=== PATIENT | female | born 1970 | race Caucasian/White ===

== ENCOUNTER 2016-10-21 07:11 | Emergency (ER) | payer BC ==
[2016-10-21] MEDS ORDERED: Ketorolac INJ* 30 MG/ML 1 ML VIAL IV PUSH ONE (07:28)
[2016-10-21] MEDS ORDERED: NS 0.9% 1000 ML* 1,000 ML IV ONE (07:28)
--- NOTE | 2016-10-21 08:21 | RAD ---
INDICATION: Left flank pain COMPARISON: ; CT pelvis November 15, 2015; CT abdomen and pelvis December 01, 2007 TECHNIQUE: Noncontrast axial source images were acquired from the level hemidiaphragms to the symphysis pubis as part of CT imaging for renal stone. Lung bases: The lung bases are clear. Liver: The liver is enlarged with findings of hepatic steatosis. Noncontrast imaging shows no evidence of a hepatic mass or ductal dilatation. Gallbladder: There are no calcified gallstones. There is no evidence of wall thickening or pericholecystic fluid.. Spleen: The spleen is normal in size. The noncontrast CT appearance is normal. Pancreas: Noncontrast imaging shows no pancreatic mass or ductal dilitation. Adrenal glands: No masses are identified. Kidneys/Bladder: There is no evidence of nephrolithiasis or CT evidence of hydronephrosis. Noncontrast imaging shows no evidence of a renal mass. The bladder is unremarkable.. There are 2 small consultations in the minor pelvis and left which were present on the earlier CT the pelvis which appear to represent vascular calcifications. Adenopathy: There is no evidence of intraperitoneal or retroperitoneal adenopathy. Evaluation is limited without oral contrast. Fluid collections: There are no free or localized fluid collections. Vessels: The aorta and iliac vessels are normal in caliber. There are no significant atherosclerotic changes. The IVC appears normal Pelvic organs: There is a 4 cm left adnexal cyst. The right adnexa is unremarkable. There is hysterectomy GI tract: Evaluation of the bowel is limited without oral contrast. The stomach, small bowel, and lower GI tract appear grossly normal. There are no obstructive findings. The appendix is visualized and appears normal. Soft tissues: No soft tissue abnormalities of the extraperitoneal abdomen or pelvis are identified. Osseous structures: There are no acute osseous findings. IMPRESSION: NO CT EVIDENCE OF UROLITHIASIS. 4 CM LEFT ADNEXAL CYST. SUGGEST FOLLOW-UP ULTRASONOGRAPHY
[2016-10-21 08:33] LABS: Hematocrit 42 % (35-47); Hemoglobin 13.9 g/dl (12.0-16.0); Mean Corpuscular HGB Conc 33 g/dl (31-36); Mean Corpuscular Hemoglobin 30 pg (27-31); Mean Corpuscular Volume 91 fL (80-97); Mean Platelet Volume 8 um3 (7.4-10.4); Red Blood Count 4.62 10^6/ul (4.0-5.4); Red Cell Distribution Width 14 % (10.5-15); White Blood Count 5.1 10^3/ul (3.5-10.8)
[2016-10-21 08:34] LABS: ALT 12 U/L (7-52); AST 16 U/L (13-39); Albumin 4.2 g/dL (3.2-5.2); Alkaline Phosphatase 49 U/L (34-104); Anion Gap 6 mmol/L (2-11); Blood Urea Nitrogen 15 mg/dL (6-24); C Reactive Protein < 1.00 mg/L (< 5.00); CO2 Carbon Dioxide 25 mmol/L (22-32); Calcium 9.1 mg/dL (8.6-10.3); Chloride 105 mmol/L (101-111); EGFR Non-African American 83.2 (>60); Globulin 3.1 g/dL (2-4); Glucose 91 mg/dL (70-100); Lipase 47 U/L (11.0-82.0); Potassium 3.9 mmol/L (3.5-5.0); Sodium 136 mmol/L (133-145); Total Protein 7.3 g/dL (6.4-8.9)
[2016-10-21 08:50] LABS: Urine Bacteria 1+ (Absent); Urine Bilirubin Negative (Negative); Urine Glucose Negative (Negative); Urine Nitrite Negative (Negative)
--- NOTE | 2016-10-21 09:30 | RAD ---
HISTORY: Adnexal mass,, status post hysterectomy COMPARISONS: CT dated October 21, 2016 TECHNIQUE: Multiple transverse and longitudinal ultrasound images were obtained of the pelvis using grayscale, color Doppler, and spectral Doppler imaging using the endovaginal transducer. FINDINGS: UTERUS: The patient is status post hysterectomy.. ENDOMETRIUM: The patient is status post hysterectomy. CUL-DE-SAC: There is no free fluid within the cul-de-sac. RIGHT OVARY: The right ovary measures 2.8 x 1.9 x 2.6 cm. Follicular cysts are noted, measuring up to 1.3 cm. Normal arterial and venous waveforms are identifiable within the ovary on spectral Doppler imaging. LEFT OVARY: The left ovary measures 5.3 x 4 x 3.5 cm. There is complex cystic lesion of the left ovary measuring approximately 4.1 x 3.2 x 3.3 cm in size. There is peripheral vascularity without internal vascularity. There is a minimally complicated, septated cystic lesion measuring 2.2 x 1.4 x 1.8 cm. Normal arterial and venous waveforms are identifiable within the ovary on spectral Doppler imaging. BLADDER: The bladder is not well visualized. OTHER: None IMPRESSION: COMPLEX LESION OF THE LEFT OVARY MEASURING 4.1 CM. WHILE THIS MAY REPRESENT A CYSTIC AND SOLID LESION, THE DIFFERENTIAL INCLUDES A HEMORRHAGIC CYST VERSUS ENDOMETRIOMA. ALSO NOTED IS A MINIMALLY COMPLICATED LEFT OVARIAN CYST . RECOMMEND FOLLOW-UP IMAGING IN 6 WEEKS-12 WEEKS
[2016-10-21 09:33] VITALS: BP 111/54
--- NOTE | 2016-10-22 16:07 | ED ---
Mike Abernathy Thomas, scribed for Daniele Swenson MD on 10/21/16 at 0722 . Abdominal Pain/Female - HPI Summary HPI Summary: The pt is a 46 y/o F accompanied by presenting to the ED c/o L flank pain that began two days ago. The pain radiates to her lower abdomen. The pain is rated 7/10. The pain is aggravated and alleviated by nothing. 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 Pt additionally c/o nausea and chills. Pt denies vomiting and dysuria. PMHx: previously healthy. PSHx: hysterectomy. SHx: no smoking, no alcohol use, no illegal drug use. FHx: negative for kidney stones. She denies a Hx of kidney stones. - History of Current Complaint Chief Complaint: EDFlankPain Stated Complaint: FLANK PAIN Hx Obtained From: Patient, Family/Public Housing Interviewer - in room Onset/Duration: Lasting Days - 2 days, Still Present Severity Currently: Moderate Pain Intensity: 7 Pain Scale Used: 0-10 Numeric Location: Flank - L Radiates: Yes Radiates to: Other - lower abd Aggravating Factor(s): Nothing Alleviating Factor(s): Nothing Associated Signs and Symptoms: Positive: Nausea, Other: - POS: chills; NEG: dysuria. Negative: Vomiting Allergies/Adverse Reactions: Allergies Allergy/AdvReac Type Severity Reaction Status Date / Time Sulfamethoxazole Allergy Rash Verified 10/21/16 07:14 w/Trimethoprim [From Bactrim] PMH/Surg Hx/FS Hx/Imm Hx Previously Healthy: No Endocrine/Hematology History: Denies: Hx Anticoagulant Therapy, Hx Diabetes, Hx Thyroid Disease Cardiovascular History: Denies: Hx Hypertension, Hx Pacemaker/ICD Respiratory History: Denies: Hx Asthma, Hx Chronic Obstructive Pulmonary Disease (COPD) History: Denies: Hx Renal Disease Neurological History: Denies: Hx Dementia, Hx Seizures Psychiatric History: Denies: Hx Substance Abuse - Cancer History Hx Chemotherapy: No Hx Radiation Therapy: No - Surgical History Surgery Procedure, Year, and Place: hysterectomy Infectious Disease History: Denies: Hx Hepatitis, Hx Human Immunodeficiency Virus (HIV), Traveled Outside the [place] in Last 30 Days - Family History Known Family History: Negative: Other - NEG: kidney stones. - Social History Alcohol Use: None Substance Use Type: Reports: None Smoking Status (MU): Former Smoker Review of Systems Positive: Chills. Negative: Fever Positive: Nausea. Negative: Vomiting Positive: flank pain - L All Other Systems Reviewed And Are Negative: Yes Physical Exam - Summary Physical Exam Summary: VITAL SIGNS: Reviewed. GENERAL: Patient is a well-developed and nourished female who is lying comfortable in the stretcher. ~Patient is not in any acute respiratory distress. HEAD AND FACE: Normocephalic and atraumatic. EYES: PERRLA, EOMI x 2, No injected conjunctiva. EARS: Hearing grossly intact. Ear canals and tympanic membranes are WNL. MOUTH: Oropharynx within normal limits. NECK: Supple, trachea is midline, no adenopathy, no JVD. CHEST: Symmetric, no tenderness at palpation LUNGS: Clear to auscultation bilaterally. No wheezing or crackles. CVS: RRR, S1 and S2 present, no murmurs or gallops appreciated. ABDOMEN: Positive LEFT CVA tenderness. Soft, no signs of distention. Positive bowel sounds. No rebound no guarding, and no masses palpated. No abdominal bruit or pulsations. EXTREMITIES: FROM in all major joints, no edema, no cyanosis or clubbing. NEURO: Alert and oriented x 3. No acute neurological deficits. Speech is normal. SKIN: Dry and warm Triage Information Reviewed: Yes Vital Signs On Initial Exam: Initial Vitals Temp Pulse Resp BP Pulse Ox 97.8 F 87 16 143/87 99 10/21/16 07:14 10/21/16 07:14 10/21/16 07:14 10/21/16 07:14 10/21/16 07:14 Vital Signs Reviewed: Yes Diagnostics - Vital Signs Vital Signs Temp Pulse Resp BP Pulse Ox 10/21/16 07:14 97.8 F 87 16 143/87 99 - Laboratory Lab Results: Lab Results 10/21/16 10/21/16 10/21/16 Range/Units 07:43 07:43 07:43 WBC 5.1 (3.5-10.8) 10^3/ul RBC 4.62 (4.0-5.4) 10^6/ul Hgb 13.9 (12.0-16.0) g/dl Hct 42 (35-47) % MCV 91 (80-97) fL MCH 30 (27-31) pg MCHC 33 (31-36) g/dl RDW 14 (10.5-15) % Plt Count 224 (150-450) 10^3/ul MPV 8 (7.4-10.4) um3 Neut % (Auto) 69.6 (38-83) % Lymph % (Auto) 18.2 L (25-47) % [place] % (Auto) 8.5 (1-9) % Eos % (Auto) 2.7 (0-6) % Baso % (Auto) 1.0 (0-2) % Absolute Neuts (auto) 3.5 (1.5-7.7) 10^3/ul Absolute Lymphs (auto) 0.9 L (1.0-4.8) 10^3/ul Absolute Monos (auto) 0.4 (0-0.8) 10^3/ul Absolute Eos (auto) 0.1 (0-0.6) 10^3/ul Absolute Basos (auto) 0 (0-0.2) 10^3/ul Absolute Nucleated RBC 0 10^3/ul Nucleated RBC % 0.1 Sodium 136 (133-145) mmol/L Potassium 3.9 (3.5-5.0) mmol/L Chloride 105 (101-111) mmol/L Carbon Dioxide 25 (22-32) mmol/L Anion Gap 6 (2-11) mmol/L BUN 15 (6-24) mg/dL Creatinine 0.75 (0.51-0.95) mg/dL Est GFR ( Amer) 107.0 (>60) Est GFR (Non-Af Amer) 83.2 (>60) BUN/Creatinine Ratio 20.0 (8-20) Glucose 91 (70-100) mg/dL Lactic Acid (0.5-2.0) mmol/L Calcium 9.1 (8.6-10.3) mg/dL Total Bilirubin 0.30 (0.2-1.0) mg/dL AST 16 (13-39) U/L ALT 12 (7-52) U/L Alkaline Phosphatase 49 (34-104) U/L C-Reactive Protein < 1.00 (< 5.00) mg/L Total Protein 7.3 (6.4-8.9) g/dL Albumin 4.2 (3.2-5.2) g/dL Globulin 3.1 (2-4) g/dL Albumin/Globulin Ratio 1.4 (1-3) Lipase 47 (11.0-82.0) U/L Beta HCG, Quant < 0.60 mIU/mL Urine Color Yellow Urine Appearance Clear Urine pH 5.0 (5-9) Ur Specific [place] 1.018 (1.010-1.030) Urine Protein Negative (Negative) Urine Ketones Negative (Negative) Urine Blood 1+ H (Negative) Urine Nitrate Negative (Negative) Urine Bilirubin Negative (Negative) Urine Urobilinogen Negative (Negative) Ur Leukocyte Esterase Negative (Negative) Urine WBC (Auto) Absent (Absent) Urine RBC (Auto) 2+(6-10/hpf) H (Absent) Ur Squamous Epith Cells Present H (Absent) Urine Bacteria 1+ H (Absent) Urine Glucose Negative (Negative) 10/21/16 Range/Units 07:43 WBC (3.5-10.8) 10^3/ul RBC (4.0-5.4) 10^6/ul Hgb (12.0-16.0) g/dl Hct (35-47) % MCV (80-97) fL MCH (27-31) pg MCHC (31-36) g/dl RDW (10.5-15) % Plt Count (150-450) 10^3/ul MPV (7.4-10.4) um3 Neut % (Auto) (38-83) % Lymph % (Auto) (25-47) % [place] % (Auto) (1-9) % Eos % (Auto) (0-6) % Baso % (Auto) (0-2) % Absolute Neuts (auto) (1.5-7.7) 10^3/ul Absolute Lymphs (auto) (1.0-4.8) 10^3/ul Absolute Monos (auto) (0-0.8) 10^3/ul Absolute Eos (auto) (0-0.6) 10^3/ul Absolute Basos (auto) (0-0.2) 10^3/ul Absolute Nucleated RBC 10^3/ul Nucleated RBC % Sodium (133-145) mmol/L Potassium (3.5-5.0) mmol/L Chloride (101-111) mmol/L Carbon Dioxide (22-32) mmol/L Anion Gap (2-11) mmol/L BUN (6-24) mg/dL Creatinine (0.51-0.95) mg/dL Est GFR ( Amer) (>60) Est GFR (Non-Af Amer) (>60) BUN/Creatinine Ratio (8-20) Glucose (70-100) mg/dL Lactic Acid 1.0 (0.5-2.0) mmol/L Calcium (8.6-10.3) mg/dL Total Bilirubin (0.2-1.0) mg/dL AST (13-39) U/L ALT (7-52) U/L Alkaline Phosphatase (34-104) U/L C-Reactive Protein (< 5.00) mg/L Total Protein (6.4-8.9) g/dL Albumin (3.2-5.2) g/dL Globulin (2-4) g/dL Albumin/Globulin Ratio (1-3) Lipase (11.0-82.0) U/L Beta HCG, Quant mIU/mL Urine Color Urine Appearance Urine pH (5-9) Ur Specific [place] (1.010-1.030) Urine Protein (Negative) Urine Ketones (Negative) Urine Blood (Negative) Urine Nitrate (Negative) Urine Bilirubin (Negative) Urine Urobilinogen (Negative) Ur Leukocyte Esterase (Negative) Urine WBC (Auto) (Absent) Urine RBC (Auto) (Absent) Ur Squamous Epith Cells (Absent) Urine Bacteria (Absent) Urine Glucose (Negative) Result Diagrams: 10/21/16 07:43 10/21/16 07:43 Lab Statement: Any lab studies that have been ordered have been reviewed, and results considered in the medical decision making process. - CT CT Abd/Pel CT Interpretation: Positive (See Comments) - NO CT EVIDENCE OF UROLITHIASIS. 4 CM LEFT ADNEXAL CYST. SUGGEST FOLLOW-UP ULTRASONOGRAPHY CT Interpretation Completed By: Radiologist - Additional Comments Diagnostic Additional Comments: US Transvaginal. Interpreted by radiologist. Impression: COMPLEX LESION OF THE LEFT OVARY MEASURING 4.1 CM. WHILE THIS MAY REPRESENT A CYSTIC AND SOLID LESION , THE DIFFERENTIAL INCLUDES A HEMORRHAGIC CYST VERSUS ENDOMETRIOMA. ALSO NOTED IS A MINIMALLY COMPLICATED LEFT OVARIAN CYST . RECOMMEND FOLLOW-UP IMAGING IN 6 WEEKS-12 Re-Evaluation - Re-Evaluation First Eval Re-Evaluation Time: 09:38 Change: Unchanged Comment: The patient declined a pelvic exam. Abdominal Pain Fem Course/Dx - Course Course Of Treatment: The pt is a 46 y/o F accompanied by presenting to the ED c/o L flank pain that began two days ago. The pain radiates to her lower abdomen. The pain is rated 7/10. The pain is aggravated and alleviated by nothing. 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 Pt additionally c/o nausea and chills. Pt denies vomiting and dysuria. PMHx: previously healthy. PSHx: hysterectomy. SHx: no smoking, no alcohol use, no illegal drug use. FHx: negative for kidney stones. She denies a Hx of kidney stones. Test results are without any significant abnormalities except a RBC of 2 in the UA. Initially, I believed that the patient had a kidney stone; therefore, I ordered a CT of the abdomen and pelvis. This showed now evidence of urolithiasis. However, the patient has a 4cm adnexal cyst, and she was recommended do a pelvic ultrasound by the radiologist. US shows a complex lesion of the left ovary measuring 4.1cm in diameter. The differential diagnoses include hemorrhagic cyst vs endometrioma. I recommend that she follow up with imaging in 6-12 weeks. I offered the patient a pelvic exam but she declined since there was no pelvic exam but she declined since there was no vaginal discharge or bleeding. However , the patient will follow up with Dr. Palafox, who is her OBGYN, in the next couple of days. She understands the importance of following up with her OBGYN as soon as possible. She was given toradol for the pain and the symptoms improved. She will take ibuprofen as needed for the pain. She is hemodynamically stable and alert and oriented x3. - Diagnoses Differential Diagnosis: Positive: Bowel Obstruction, Constipation, Diverticulitis, Ovarian Cyst, Renal Colic, Urinary Tract Infection Provider Diagnoses: Ovarian cyst, Flank pain Discharge - Discharge Plan Condition: Stable Disposition: HOME Patient Education Materials: Ovarian Cyst (ED) Referrals: Jennifer Katz MD [Primary Care Provider] - 3 Days The documentation as recorded by the Mike pavon Thomas accurately reflects the service I personally performed and the decisions made by me, Daniele Swenson MD.
== END 2016-10-21 10:03 | disposition home or self-care (01) ==
LOC: ED 07:11
DX: N83.292 Other ovarian cyst, left side (principal); R11.0 Nausea; R68.83 Chills (without fever); M54.5 Low back pain; Z32.02 Encounter for pregnancy test, result negative; Z90.710 Acquired absence of both cervix and uterus; Z88.2 Allergy status to sulfonamides; Z87.891 Personal history of nicotine dependence
CPT/HCPCS: 36415; 74176; 76830; 80053; 81003; 81015; 83605; 83690; 84702; 85025; 86140; 87086; 96374; 99282; J1885

== ENCOUNTER 2017-01-01 10:33 | Emergency (ER) | payer BC ==
[2017-01-01 11:47] VITALS: BP 126/77
--- NOTE | 2017-01-01 12:05 | UC ---
Lower Extremity/Ankle HPI - HPI Summary HPI Summary: 46 YEAR OLD FEMALE PRESENTS WITH BILATERAL LEG PAIN AND ECCHYMOSIS AROUND THE UMBILICUS POST LAPARSCOPIC SURGERY . - History of Current Complaint Chief Complaint: UCLowerExtremity Stated Complaint: LEG PAIN Time Seen by Provider: 01/01/17 12:01 Hx Obtained From: Patient Onset/Duration: Sudden Onset Severity Initially: Moderate Severity Currently: Moderate - Allergies/Home Medications Allergies/Adverse Reactions: Allergies Allergy/AdvReac Type Severity Reaction Status Date / Time Sulfamethoxazole Allergy Rash Verified 01/01/17 12:48 w/Trimethoprim [From Bactrim] PMH/Surg Hx/FS Hx/Imm Hx Previously Healthy: Yes Other History Of: Negative For: Anticoagulant Therapy - Surgical History Surgical History: Yes Surgery Procedure, Year, and Place: hysterectomy - Family History Known Family History: Negative: Other - NEG: kidney stones. - Social History Alcohol Use: None Substance Use Type: None Smoking Status (MU): Former Smoker Review of Systems Constitutional: Negative Skin: Other - ECCHYMOSIS AROUND UMBILICUS Eyes: Negative ENT: Negative Respiratory: Negative Cardiovascular: Negative Gastrointestinal: Negative Genitourinary: Negative Motor: Negative Neurovascular: Negative Musculoskeletal: Other: - BILATERAL LEG PAIN/SWELLING Neurological: Negative Psychological: Negative All Other Systems Reviewed And Are Negative: Yes Physical Exam Triage Information Reviewed: Yes Vital Signs: Initial Vital Signs Temp 36.9 C 01/01/17 11:43 Pulse 75 01/01/17 11:43 Resp 16 01/01/17 11:43 BP 126/77 01/01/17 11:43 Pulse Ox 99 01/01/17 11:43 Vital Signs Reviewed: Yes Eye Exam: Normal ENT Exam: Normal Dental Exam: Normal Neck exam: Normal Neck: Positive: 1 Respiratory Exam: Normal Cardiovascular Exam: Normal Abdominal Exam: Normal Musculoskeletal: Positive: Other: - BILATERAL LEG PAIN/SWELLING Neurological Exam: Normal Psychological Exam: Normal Skin Exam: Normal Lower Extremity Course/Dx - Differential Dx/Diagnosis Provider Diagnoses: BILATERAL LEG PAIN/SWELLING. HEMATOMA AROUND UMBILICUS Discharge - Discharge Plan Condition: Stable Disposition: OTHER Discharge Disposition Comment: PATIENT SUGGESTED TO GO TO THE ER Patient Education Materials: Deep Venous Thrombosis (ED) Referrals: Jennifer Katz MD [Primary Care Provider] - Additional Instructions: patient suggested to go to er for bilateral leg pain/swelling and abdominal ecchymosis post surgery.
== END 2017-01-01 12:15 ==
LOC: UCEAST 10:33
DX: S30.1XXA Contusion of abdominal wall, initial encounter (principal); Z88.2 Allergy status to sulfonamides; Z87.891 Personal history of nicotine dependence; M79.605 Pain in left leg; M79.604 Pain in right leg; M79.89 Other specified soft tissue disorders; X58.XXXA Exposure to other specified factors, initial encounter; Y92.9 Unspecified place or not applicable
CPT/HCPCS: 99212; G0463

== ENCOUNTER 2017-01-01 12:42 | Emergency (ER) | payer BC ==
[2017-01-01 14:03] LABS: Hematocrit 39 % (35-47); Hemoglobin 13.1 g/dl (12.0-16.0); Mean Corpuscular HGB Conc 34 g/dl (31-36); Mean Corpuscular Hemoglobin 31 pg (27-31); Mean Corpuscular Volume 91 fL (80-97); Mean Platelet Volume 8 um3 (7.4-10.4); Red Blood Count 4.26 10^6/ul (4.0-5.4); Red Cell Distribution Width 14 % (10.5-15); White Blood Count 4.8 10^3/ul (3.5-10.8)
[2017-01-01 14:12] LABS: Urine Bacteria 1+ (Absent); Urine Bilirubin Negative (Negative); Urine Glucose Negative (Negative); Urine Nitrite Negative (Negative)
[2017-01-01 14:16] LABS: ALT 13 U/L (7-52); AST 14 U/L (13-39); Albumin 3.9 g/dL (3.2-5.2); Alkaline Phosphatase 38 U/L (34-104); Anion Gap 4 mmol/L (2-11); BUN/Creatinine Ratio 17.1 (8-20); Blood Urea Nitrogen 13 mg/dL (6-24); C Reactive Protein < 1.00 mg/L (< 5.00); CO2 Carbon Dioxide 28 mmol/L (22-32); Calcium 8.9 mg/dL (8.6-10.3); Chloride 104 mmol/L (101-111); EGFR African American 105.4 (>60); EGFR Non-African American 81.9 (>60); Globulin 2.9 g/dL (2-4); Glucose 88 mg/dL (70-100); Potassium 3.8 mmol/L (3.5-5.0); Sodium 136 mmol/L (133-145); Total Protein 6.8 g/dL (6.4-8.9)
--- NOTE | 2017-01-01 15:11 | RAD ---
Indication: Bilateral leg pain Duplex Doppler sonography of the deep venous system of both lower extremities was performed. Bilaterally the common femoral veins, proximal greater saphenous veins, proximal deep femoral veins, femoral veins, popliteal veins, posterior tibial veins and peroneal veins appear patent and compressible. IMPRESSION: NO EVIDENCE OF DEEP VENOUS THROMBOSIS OF EITHER LOWER EXTREMITY IS PRESENT.
[2017-01-01 16:05] VITALS: BP 137/93
--- NOTE | 2017-01-02 18:32 | ED ---
Victor Hugo Abernathy Angela, scribed for Daniele Swenson MD on 01/01/17 at 1335 . Lower Extremity - HPI Summary HPI Summary: This pt is a 46 y/o female presenting to [facility] [place]/o bilateral leg pain x3 days. Pt reports that she feels a "burning sensation inside the thighs" and aching pain in her legs. She denies chest pain, SOB. Pt notes she had a hysterectomy 1 year ago and had an oophorectomy 1 week ago (done by Dr. Palafox in [place]) done via laparoscopic surgery. She called Dr. Palafox's office and was told to go to Urgent Care or come to the ED. At urgent care, pt was referred to the ED to rule out DVT. - History of Current Complaint Chief Complaint: EDExtremityLower Stated Complaint: SURGERY LAST /SORE LEGS-SENT F [facility] Time Seen by Provider: 01/01/17 13:19 Hx Obtained From: Patient Mechanism Of Injury: Other - none Onset of Pain: Days Onset/Duration: Still Present Severity Currently: Moderate Pain Intensity: 6 Pain Scale Used: 0-10 Numeric Timing: Lasting Days Location: Is Discrete @ - bilateral legs Character Of Pain: Burning Associated Signs And Symptoms: Negative: Other - SOB, chest pain Able to Bear Weight: Yes - Allergies/Home Medications Allergies/Adverse Reactions: Allergies Allergy/AdvReac Type Severity Reaction Status Date / Time Sulfamethoxazole Allergy Rash Verified 01/01/17 12:48 w/Trimethoprim [From Bactrim] PMH/Surg Hx/FS Hx/Imm Hx Endocrine/Hematology History: Denies: Hx Anticoagulant Therapy, Hx Diabetes, Hx Thyroid Disease Cardiovascular History: Denies: Hx Hypertension, Hx Pacemaker/ICD Respiratory History: Denies: Hx Asthma, Hx Chronic Obstructive Pulmonary Disease (COPD) History: Denies: Hx Renal Disease Neurological History: Denies: Hx Dementia, Hx Seizures Psychiatric History: Denies: Hx Substance Abuse - Cancer History Hx Chemotherapy: No Hx Radiation Therapy: No - Surgical History Surgery Procedure, Year, and Place: hysterectomy Infectious Disease History: No Infectious Disease History: Denies: Hx Hepatitis, Hx Human Immunodeficiency Virus (HIV), History Other Infectious Disease, Traveled Outside the [place] in Last 30 Days - Family History Known Family History: Negative: Other - NEG: kidney stones. - Social History Alcohol Use: None Substance Use Type: Reports: None Smoking Status (MU): Former Smoker Review of Systems Negative: Fever, Chills Eyes: Negative ENT: Negative Negative: Chest Pain Negative: Shortness Of Breath Genitourinary: Negative Positive: Other - LE pain, LE burning All Other Systems Reviewed And Are Negative: Yes Physical Exam - Summary Physical Exam Summary: VITAL SIGNS: Reviewed. GENERAL: Patient is a well-developed and nourished female who is lying comfortable in the stretcher. Patient is not in any acute respiratory distress. HEAD AND FACE: No signs of trauma. No ecchymosis, hematomas or skull depressions. No sinus tenderness. EYES: PERRLA, EOMI x 2, No injected conjunctiva, no nystagmus. EARS: Hearing grossly intact. Ear canals and tympanic membranes are within normal limits. MOUTH: Oropharynx within normal limits. NECK: Supple, trachea is midline, no adenopathy, no JVD, no carotid bruit, no c- spine tenderness, neck with full ROM. CHEST: Symmetric, no tenderness at palpation LUNGS: Clear to auscultation bilaterally. No wheezing or crackles. CVS: Regular rate and rhythm, S1 and S2 present, no murmurs or gallops appreciated. ABDOMEN: Soft, non-tender. No signs of distention. No rebound no guarding, and no masses palpated. Bowel sounds are normal. There is ecchymosis around the umbilical area. Stitches are clean, dry, intact. There is no purulence drainage. EXTREMITIES: FROM in all major joints, no edema, no cyanosis or clubbing. LE: there is no swelling, no deformity, no ecchymosis. The pulses are normal. NEURO: Alert and oriented x 3. No acute neurological deficits. Speech is normal and follows commands. SKIN: Dry and warm Triage Information Reviewed: Yes Vital Signs On Initial Exam: Initial Vitals Temp Pulse Resp BP Pulse Ox 97.8 F 77 16 130/85 98 01/01/17 12:48 01/01/17 12:48 01/01/17 12:48 01/01/17 12:48 01/01/17 12:48 Vital Signs Reviewed: Yes Diagnostics - Vital Signs Vital Signs Temp Pulse Resp BP Pulse Ox 01/01/17 12:48 97.8 F 77 16 130/85 98 - Laboratory Result Diagrams: 01/01/17 13:47 01/01/17 13:47 Lab Statement: Any lab studies that have been ordered have been reviewed, and results considered in the medical decision making process. - Additional Comments Diagnostic Additional Comments: Venous doppler study bilateral, per radiologist: IMPRESSION: No evidence of deep venous thrombosis of either lower extremity is present. ED physician has reviewed this radiology report and agrees. Lower Extremity Course/Dx - Course Assessment/Plan: This pt is a 46 y/o female presenting to [facility] c/o bilateral leg pain x3 days. Pt reports that she feels a "burning sensation inside the thighs" and aching pain in her legs. She denies chest pain, SOB. Pt notes she had a hysterectomy 1 year ago and had an oophorectomy 1 week ago (done by Dr. Palafox in [place]) done via laparoscopic surgery. She called Dr. Palafox's office and was told to go to Urgent Care or come to the ED. At urgent care, pt was referred to the ED to rule out DVT. Test results without any significant abnormalities. Bilateral US is negative for DVT. I believe the pts symptoms are secondary to musculoskeletal pain. Therefore, the pt will be discharged with follow up from her PCP. Pt is hemodynamically stable, alert and oriented x3. Pt is ambulating out of the ER. - Diagnoses Provider Diagnoses: Musculoskeletal pain Discharge - Discharge Plan Condition: Stable Disposition: HOME Patient Education Materials: Musculoskeletal Pain (ED) Referrals: Jennifer Katz MD [Primary Care Provider] - Additional Instructions: Please follow up with your primary care provider. RETURN TO THE ED FOR ANY WORSENING SYMPTOMS. The documentation as recorded by the Victor Hugo pavon Angela accurately reflects the service I personally performed and the decisions made by me, Daniele Swenson MD.
== END 2017-01-01 16:04 | disposition home or self-care (01) ==
LOC: ED 12:42
DX: M79.605 Pain in left leg (principal); M79.604 Pain in right leg; Z90.721 Acquired absence of ovaries, unilateral; Z90.710 Acquired absence of both cervix and uterus; Z87.891 Personal history of nicotine dependence
CPT/HCPCS: 36415; 80053; 81003; 81015; 85025; 85610; 86140; 87086; 93970; 99283